=== PATIENT | male | born 2000 | race Two or more races ===

== ENCOUNTER 2025-04-29 16:16 | Emergency (ER) | payer OTHER ==
[~2025-04-29] VITALS: Ht 167.6 cm; Wt 68.0 kg
[2025-04-29] MEDS ORDERED: CLARITIN5 MG/5 ML (17:03)
[2025-04-29] MEDS ORDERED: DESCOVY 200-251 EACH (17:03)
[2025-04-29] MEDS ORDERED: QVAR REDIHALE10.6 GM (17:04)
[2025-04-29] MEDS ORDERED: PROAIR RESPICL90 MCG (17:04)
[2025-04-29] MEDS ORDERED: CLONAZEPAM1 MG (17:04)
[2025-04-29 19:17] LABS: BASO % 0.5 % (0.1-1.2); EOS # 0.09 (0.04-0.54); EOS % 1.5 % (0.7-7.0); LYMPH # 1.80 (1.18-3.74); LYMPH % 30.0 % (19.3-53.1); MEAN PLATELET VOLUME 10.60 fl (9.4-12.4); MONO # 0.57 (0.24-0.82); MONO % 9.5 % (4.7-12.5); NEUT # 3.49 (1.56-6.13); NEUT % 58.2 % (34.0-71.1); RED CELL DISTRIBUTION WIDTH 13.1 % (11.6-14.4)
[2025-04-29 19:37] LABS: COVID-19 AG NEGATIVE (NEGATIVE)
[2025-04-29 19:41] LABS: INR 1.03
[2025-04-29 19:46] LABS: ALT/SGPT 44.0 U/L (12-78); AST/SGOT 23.0 U/L (15-37); BILIRUBIN TOTAL 0.46 mg/dL (0.3-1.2); BUN CREA RATIO 7.0 (7.0-25.0); CREATININE SERUM 0.87 mg/dL (0.70-1.30); GFR 107.81; GLOBULINA 3.3 G/DL (2.4-3.5); GLUCOSE FASTING 90.0 mg/dL (65-100); OSMOLALITY SERUM 293.0 MOSM/KG (275-295)
== END 2025-04-29 23:16 | disposition home or self-care (01) ==
LOC: ER 16:17
PROVIDERS: General Practice
DX: H53.8 Other visual disturbances (principal); R53.81 Other malaise; Z20.822 Contact with and (suspected) exposure to COVID-19; Z87.09 Personal history of other diseases of the respiratory system; I49.8 Other specified cardiac arrhythmias